=== PATIENT | female | born 1950 | race Caucasian/White ===

== ENCOUNTER → 2017-08-28 | Day surgery (SDC) | payer MEDICARE ==
[~2017-08-28] VITALS: Ht 162.6 cm; Wt 79.0 kg
[~2017-08-28] MED LIST: CARB200T PO; CEPH-460 PO; CHLORHEXIDINE GLUCONATE 2 % 1 PACK (2 CLOTHS) TOPICAL PRN; CHOL1TAB35 PO; CLOB0.05 TOPICAL; FAMOTIDINE 20 MG/2 ML VIAL ONE; LACTATED RINGER'S 1000 ML IV PRN; LEVO25TA4 PO; LISI-515 PO; LOVA20TA PO; METO25TA3 PO; METOPROLOL TARTRATE 25 MG TAB PO PRN; MIDAZOLAM HCL 5 MG/ML VIAL (1 ML) ONE; NEOMYCIN/POLYMYXIN 1 ML G.U. IRRIGANT ONE; PERC5TAB12 PO; POVIDONE IODINE 5% (ANTISEPSIS KIT) 4 APPLICATIONS EACH NARE PRN; SODIUM CHLORID 0.9% 500 ML IV PRN; ceFAZolin 1,000 MG/NS 100 ML IV SCH
[2017-08-28 10:15] VITALS: PULSE 69
[2017-08-28 11:38] LABS: HEMATOCRIT 39.5 % (35.0-46.0); HEMOGLOBIN 13.3 GM/DL (11.6-15.3); MEAN CELL VOLUME 91.1 FL (80.0-100.0); MEAN CORPUSCULAR HEMOGLOBIN 30.7 PG (27.0-34.0); MEAN CORPUSCULAR HGB CONC 33.7 % (32.0-36.0); MEAN PLATELET VOLUME 7.7 FL (7.0-11.0); PLATELET COUNT 229 TH/MM3 (150-450); RED BLOOD COUNT 4.34 MIL/MM3 (4.00-5.30); RED CELL DISTRIBUTION WIDTH 12.6 % (11.6-17.2); WHITE BLOOD COUNT 6.7 TH/MM3 (4.0-11.0)
[2017-08-28 12:00] VITALS: PULSE 63
[2017-08-28 14:50] VITALS: PULSE 81; TEMP 97.5
[2017-08-28 15:30] VITALS: PULSE 70
[2017-08-28 16:25] VITALS: BP 136/71; PULSE 72; RESP 14; O2SAT 95
--- NOTE | 2017-08-29 09:45 | MP ---
cc: PRABHU MAST III, M.D. DATE OF SURGERY: 08/28/2017 PREOPERATIVE DIAGNOSIS 1. Left intra-articular distal radius fracture. PROCEDURE 1. Left distal radius open reduction, internal fixation with dorsal bridge plate of the left distal radius intra-articular fracture, more than three fragments. 2. Use of image intensifier. SURGEON Rubens Lezama MD BANKRUPTCY ATTORNEY Prabhu Mast III, MD PROCEDURE The patient was brought to the operating room and placed supine on the operating table. After the correct site and side of surgery were verified by members of each team in the room multiple times and after adequate general anesthesia, upper extremity block was achieved, left upper extremity was prepped and draped in the traditional sterile surgical fashion. Mini C-arm was used to verify the site of the intended procedure. The incisions were diagrammed, incisions were made on the dorsal aspect of the hand, wrist and forearm. Blunt dissection was performed. Bipolar electrocautery was used as needed. No tourniquet was used at all during this case and blood loss was minimal. Blunt dissection down to the third metacarpal was performed and the periosteum cleared dorsally. Attention was then paid proximally and the radial shaft was dissected out and exposed and a small area was cleared of its periosteum dorsally as well. Incision over Alison's tubercle was made. Blunt dissection was performed in the usual fashion. The third dorsal compartment was opened and the EPL tendon was released and protected, this revealed a fracture. Irrigation was performed. Through preoperative planning and imagery it was obvious that there were many small pieces, radially, volarly and dorsally as well as ulnarly of the distal radius and all were too small to hold hardware, therefore the dorsal bridge plating using ligamentotaxis was selected upon as the technique and this was performed using the Synthes dorsal bridge plate. Three screws were placed distally. The fracture was distracted. The articular part of the articular surface was then buttressed up with cancellus bone graft from negative 45-60 degrees to 0-10 degrees positive. Radial inclination was restored as well. A small area of the radial styloid had a little bit of incongruity but did not appear to be problematic. The distraction was held and without any rotation to the hand, wrist or forearm, three proximal screws were applied. The screws were all tailored to length using real-time mini C-arm guidance. Additional cancellus bone graft was applied and this was all done under C-arm visualization and guidance. Thorough irrigation with multiple liters of saline was performed throughout the case. Final x-rays were obtained. Passive range of motion examination of the elbow and DRUJ revealed smooth and full pronation and supination without any limitation and full flexion and extension at the elbow. Skin edges reapproximated using deep 3-0 Vicryl sutures followed by running and interrupted 4-0 Nylon sutures. The hand and arm were thoroughly cleansed and dried. Betadine and Adaptic dressings were applied on top of the wounds. A bulky short-arm immobilizing splint leaving the thumb and fingers all free was made. Capillary refill was less than 2 seconds in all fingertips the entire time. The patient tolerated the procedure well. MD DAYSI Darling III/KELVIN /2:57 PM /9:17 AM
--- NOTE | 2017-08-29 17:30 | PD.OP ---
Operative Report Preoperative Diagnosis: (1) Distal radius fracture, left Postoperative Diagnosis: (1) Distal radius fracture, left Procedure: 1 left distal radius intra-articular fracture (more than 3 fragments) open reduction internal fixation 2 use of image intensifier Anesthesia: Gen. Surgeon: Rubens Szymanski Ripsaw Operator(s): Prabhu Mast III, MD Operation and Findings: Patient is a 67 year old right handed female that presented for evaluation of left wrist fracture sustained during a ground-level fall on 08/09/17. Preoperative imaging included a CAT scan of her left wrist, which showed significant comminution as well as dorsal angulation. Fracture line was very distal to the radius. After extensive discussion with the patient, it was determined that the best course of action to limit her risk of posttraumatic arthritis was for a dorsal bridge plate to be placed. Risks benefits and alternative treatments were discussed. All questions were answered. The patient's son was also in the room for much of this discussion during the preoperative visit, though not on the day of surgery. The patient understood that this will require roughly 7 weeks in a cast followed by a second procedure for removal. She expressed understanding and agreed to assume the risks of operative treatment per the above plan. Informed consent was therefore obtained. The patient was marked in the preoperative holding bay. Antibiotics were given. The patient was brought to the operating room. All pressure points were padded. After the smooth induction of general anesthesia, the surgical site was prepped and draped in the usual sterile fashion. A surgical timeout was performed. The Mini C-arm fluoroscopy was brought in. Under fluoroscopic guidance, 3 incisions were planned and marked on the patient's skin. The first was several centimeters long over the third metacarpal shaft. The second was over the radiocarpal joint, and the third, most-proximal incision was placed over the distal radius. Following this both sharp and blunt dissection was carried down to the extensor tendons which were kept free from injury. The periosteum over the third metacarpal was sharply divided and dissected free from the underlying metacarpal with the periosteal elevator. Hemostasis was obtained with bipolar cautery. Following this the incision over the distal radius was made and blunt dissection was carried down to the dorsal aspect of the distal radius. The Munith elevator was used to clear away the extensor pollicis longus and extensor carpi radialis tendons from the underlying radius in order to keep them free from injury as well as make a place for the proximal plate to be fixated. After this the incision over the radial carpal joint was made. Blunt dissection was carried down to the extensor retinaculum which was sharply divided. The EPL tendon was released and retracted so as to keep it free from injury. The EDC tendons were visualized in the fourth dorsal compartment and retracted ulnarly. The Munith elevator was then used to bluntly dissect a continuous space from the dorsal aspect of the third metacarpal through the floor of the fourth compartment ending finally in the dorsal aspect of the radius, with all extensor tendons including the EPL kept superficial to this space. The Synthes bridge plate was then placed through this space. The EPL and extensor tendons were again confirmed to be superficial. 3 screws were placed into the metacarpal securing the plate distally. At this point periosteal flaps were made over the dorsal aspect of the fracture line. Cortical cancellus bone chips were then placed into the fracture line while distracting the distal fragment so as to restore volar tilt and radial inclination. This was achieved, as confirmed by C-arm. Again the EPL and extensor tendons were kept superficial to the plate. The wrist was distracted and the 3 proximal screws were placed into the dorsal radius. The fixation was again confirmed by C-arm. The most distal and proximal screws of the plate were downsized by 1-2 mm as needed. C-arm was again used to confirm fixation and reduction, both were excellent. Following this the surgical sites were copiously irrigated with antibiotic solution. Final x-rays using C-arm were obtained. Passive ranging of the EPL and extensor tendons indicated a lack of tethering of the tendons as all moved freely. Pronation and supination were performed passively without crepitus. The skin was reapproximated using deep dermal 3-0 Vicryl sutures followed by interrupted and running 4-0 nylon. The wound was dressed with Betadine and Adaptic. After appropriate padding, a splint was fashioned leaving thumb and metacarpals free. All digits maintained excellent cap refill throughout. All needle sponge and instrument counts were correct 2. The patient was awoken from anesthesia and arrived stable and doing well to the PACU. Rubens Szymanski MD Aug 29, 2017 17:30
--- NOTE | 2017-08-29 23:23 | EKG ---
Date Performed: 08/28/2017 Time Performed: 11:29:30 PTAGE: 67 years EKG: Sinus rhythm NONSPECIFIC T-WAVE ABNORMALITY BORDERLINE ECG NO PREVIOUS TRACING DOCTOR: Marcus Lugo Interpretating Date/Time 08/29/2017 23:21:33
== END | disposition home or self-care (01) ==
LOC: PHSDC 09:26
PROVIDERS: ATTEND Student in an Organized Health Care Education/Training Program
DX: S52.572A Other intraarticular fracture of lower end of left radius, initial encounter for closed fracture (principal); W01.0XXA Fall on same level from slipping, tripping and stumbling without subsequent striking against object, initial encounter; R94.31 Abnormal electrocardiogram [ECG] [EKG]
CPT/HCPCS: 01830; 25609; 36415; 64450; 85027; 93005; C1713; J0690; J2250; J3010; J7120

== ENCOUNTER → 2017-10-23 | Day surgery (SDC) | payer MEDICARE, OTHER ==
[~2017-10-23] VITALS: Ht 162.6 cm; Wt 79.0 kg
[~2017-10-23] MED LIST changes: +ACETAMINOPHEN/HYDROcodone 325 MG/5 MG TAB ONE; +BACITRACIN TOP OINT 15 GM TUBE ONE; +BUPIVACAINE/EPINEPHRINE 0.25% 50 ML VIAL ONE; -CARB200T PO; -CHOL1TAB35 PO; -CLOB0.05 TOPICAL; +DEXAMETHASONE SOD PHOS 4 MG/ML VIAL IV ONE; -FAMOTIDINE 20 MG/2 ML VIAL ONE; +GENTAMICIN SULFATE 80 MG/2 ML VIAL ONE; +LIDOCAINE HCL 1% PF 5 ML SYRINGE OTHER ONE; -LOVA20TA PO; +MIDAZOLAM HCL 2 MG/2 ML VIAL ONE; -MIDAZOLAM HCL 5 MG/ML VIAL (1 ML) ONE; -NEOMYCIN/POLYMYXIN 1 ML G.U. IRRIGANT ONE; +ONDANSETRON HCL 4 MG/2 ML VIAL IV PUSH ONE; +PROPOFOL 200 MG/20 ML AMP IV ONE; +TEGR200T PO; +ceFAZolin INJ 1,000 MG VIAL ONE; +ePHEDrine/NS 25 MG/5 ML SYRINGE IV ONE; +fentaNYL CITRATE 250 MCG/5 ML AMP ONE
[2017-10-23 07:21] LABS: HEMATOCRIT 40.9 % (35.0-46.0); HEMOGLOBIN 13.7 GM/DL (11.6-15.3); MEAN CELL VOLUME 91.1 FL (80.0-100.0); MEAN CORPUSCULAR HEMOGLOBIN 30.5 PG (27.0-34.0); MEAN CORPUSCULAR HGB CONC 33.5 % (32.0-36.0); MEAN PLATELET VOLUME 8.1 FL (7.0-11.0); PLATELET COUNT 232 TH/MM3 (150-450); RED BLOOD COUNT 4.49 MIL/MM3 (4.00-5.30); RED CELL DISTRIBUTION WIDTH 12.8 % (11.6-17.2); WHITE BLOOD COUNT 7.9 TH/MM3 (4.0-11.0)
[2017-10-23 09:33] VITALS: PULSE 114
[2017-10-23 10:15] VITALS: PULSE 88; TEMP 98
[2017-10-23 11:00] VITALS: BP 155/84; PULSE 88; RESP 16; O2SAT 95
--- NOTE | 2017-10-24 10:10 | PD.OP ---
Operative Report Date of Surgery: Oct 23, 2017 Preoperative Diagnosis: (1) Distal radius fracture, left Postoperative Diagnosis: (1) Distal radius fracture, left Procedure: Removal of left wrist dorsal bridge plate (29323) Surgeon: Rubens Szymanski Ostrich Farmer(s): . Operation and Findings: This is a 67-year-old female who presented several weeks after sustaining a ground-level fall with a left distal radius fracture. CT was obtained which showed intra-articular involvement as well as significant comminution. Risks benefits alternative treatments were discussed with the patient at that time. All questions were answered. The patient expressed understanding. The patient elected to assume the risks of open reduction and internal fixation with a dorsal bridge plate. Patient understood at that time that this would be a multistage surgical treatment, as she would require the bridge plate to be removed at a future date. The patient has now completed her fixation with the bridge plate and presents for removal. Risks benefits and alternative treatments were again discussed. All questions were answered and the patient expressed understanding. Patient elected to assume the risks of removal of the dorsal bridge plate. Informed consent was obtained. The surgical site was marked in the preoperative holding bay. Antibiotics were given on-call to the operating room. The patient was taken to the operating room and all pressure points were padded. A surgical timeout was performed. An appropriately padded upper extremity tourniquet was placed. After the smooth induction of general anesthesia, the surgical site was instilled with quarter percent Marcaine with epinephrine. The surgical site was prepped and draped in the usual sterile fashion. The upper extremity was exsanguinated using an Esmarch bandage and the upper extremity tourniquet was inflated. The patient's distal and proximal incisions were made along the previous healed scar. Blunt dissection was carried down to the bridge plate. The screws were removed and the bridge plate slid easily out of the distal incision. Films after the removal, showed the absence of retained hardware, as well as good reduction of the fracture. Bone putty was used to fill the holes where the screws had been. The tourniquet was let down, totaling 25 minutes. All digits pinked up nicely. hemostasis was ensured. The incisions were closed with interrupted 4-0 nylon's. The surgical site was cleaned. The incision was dressed with bacitracin Xeroform gauze dry gauze. An appropriately padded volar splint was fashioned. The patient was awoken from anesthesia and arrived stable and doing well to the PACU. All needle sponge and instrument counts were correct 2. Rubens Szymanski MD Oct 24, 2017 10:10
== END | disposition home or self-care (01) ==
LOC: PHSDC 06:13
PROVIDERS: ATTEND Student in an Organized Health Care Education/Training Program
DX: Z47.2 Encounter for removal of internal fixation device (principal)
CPT/HCPCS: 01830; 20680; 36415; 76000; 85027; J0690; J1100; J1580; J2250; J2405; J3010; J7120